=== PATIENT | female | born 2000 | race Caucasian/White ===

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

== ENCOUNTER 2022-01-26 21:17 | Emergency (ER) | payer OTHER ==
[~2022-01-26] VITALS: Ht 160 cm; Wt 138.0 kg
[2022-01-26 22:17] VITALS: BP 128/87
[2022-01-27] MEDS ORDERED: IBUPROFEN 600MG TABLET PO ONE (02:15)
== END 2022-01-27 02:37 | disposition home or self-care (01) ==
LOC: ER 21:17
DX: R07.89 Other chest pain (principal); G89.29 Other chronic pain; M54.9 Dorsalgia, unspecified
CPT/HCPCS: 71045; 93005; 99283

== ENCOUNTER 2023-06-25 10:28 | Emergency (ER) | payer OTHER ==
[~2023-06-25] VITALS: Ht 157.5 cm; Wt 140.0 kg
[2023-06-25 10:51] VITALS: O2SAT 100
[2023-06-25 12:14] LABS: CLARITY URINE CLOUDY (CLEAR); COLOR URINE DARK YELLOW (YELLOW)
[2023-06-25 12:15] LABS: GLUCOSE URINE NEGATIVE (NEGATIVE); KETONES URINE 3+ (NEGATIVE); LEUKOCYTE ESTERASE URINE TRACE (NEGATIVE); NITRITE URINE NEGATIVE (NEGATIVE); OCCULT BLOOD URINE 3+ (NEGATIVE); PROTEIN URINE 2+ (NEGATIVE)
[2023-06-25 12:29] LABS: RBC URINE TNTC /hpf (0-2); SQUAMOUS EPITHELIAL CELL URINE 1+ /lpf (RARE/1+)
[2023-06-25] MEDS ORDERED: ACETAMINOPHEN 325MG TABLET PO STA (12:30)
[2023-06-25] MEDS ORDERED: KETOROLAC 60MG/2ML VIAL IM STA (12:30)
[2023-06-25 12:31] LABS: BACTERIA URINE 2+; WBC URINE 15-25 /hpf (0-2)
[2023-06-25 13:08] LABS: BASOPHILS % 0.3 % (0.0-2.0); EOSINOPHILS % 0.8 % (0.0-5.0); HEMATOCRIT. 39.7 % (36.0-48.0); HEMOGLOBIN. 13.3 g/dL (12.0-16.0); LYMPHOCYTES % 13.6 % (20.0-50.0); MEAN CORPUSCULAR HEMOGLOBIN 29.7 pg (28.0-32.0); MEAN CORPUSCULAR HGB CONC 33.3 g/dL (31.0-37.0); MEAN CORPUSCULAR VOLUME 88.9 fL (81.0-99.0); MEAN PLATELET VOLUME 11.3 fl (7.4-10.4); MONOCYTES % 6.8 % (2.0-8.0); NEUTROPHILS % 78.5 % (40.0-76.0); PLATELET 208 x1000/uL (130-400); RED BLOOD CELL COUNT 4.47 mill/uL (4.2-5.4); RED CELL DISTRIBUTION WIDTH 13.4 % (11.6-14.6); WHITE BLOOD COUNT 11.2 x1000/uL (4.5-11.0)
[2023-06-25 13:09] LABS: ALANINE AMINOTRANSFERASE 33 IU/L (10-49); ALBUMIN 4.2 g/dL (3.2-4.8); ASPARTATE AMINOTRANSFERASE 23 IU/L (<34); BILIRUBIN TOTAL 0.9 mg/dL (0.1-1.0); CALCIUM 9.3 mg/dL (8.7-10.4); CARBON DIOXIDE 28 mEq/L (21-32); CHLORIDE 106 mEq/L (98-107); CREATININE 0.7 mg/dL (0.6-1.0); GLUCOSE 92 mg/dL (70-105); INR 1.1; POTASSIUM 4.2 mEq/L (3.5-5.1); PROTEIN TOTAL 7.5 g/dL (6.0-8.3); PROTHROMBIN TIME 11.7 sec (9.6-11.0); SODIUM 141 mEq/L (136-145)
[2023-06-25 13:14] LABS: UREA NITROGEN BLOOD < 5 mg/dL (9-23)
[2023-06-25] MEDS ORDERED: IBUP-2030 MT (14:50)
[2023-06-25 15:09] VITALS: BP 138/64; PULSE 85; RESP 16; TEMP 98.6
== END 2023-06-25 15:10 | disposition home or self-care (01) ==
LOC: ER 10:28
DX: K80.20 Calculus of gallbladder without cholecystitis without obstruction (principal)
CPT/HCPCS: 99285; 76705; 80053; 81003; 81025; 83690; 85025; 85610; 87086; 36415; 96372; J1885